=== PATIENT | male | born 1940 | race Caucasian/White ===

== ENCOUNTER → 2017-02-21 | Day surgery (SDC) | payer MEDICARE, BC | END | disposition home or self-care (01) | LOC: HOP 11:55 | PROVIDERS: ATTEND Internal Medicine | DX: Z41.8 Encounter for other procedures for purposes other than remedying health state (principal) ==

== ENCOUNTER 2017-05-07 10:58 | Day surgery (SDC) | payer MEDICARE, BC ==
[2017-05-07 12:00] LABS: BASO % 0.3 % (0-6); EOS % 2.6 % (0-6); GRAN % 65.7 % (47-80); HEMOGLOBIN 17.2 gm/dl (14.0-18.0); LYMPH % 23.1 % (16-45); MEAN CELL VOLUME 93.1 fl (81-97); MEAN CORPUSCULAR HGB CONC 34.4 g/dl (32-36); MEAN PLATELET VOLUME 10.5 fl (7.4-10.4); MONO % 8.3 % (0-9); PLATELET COUNT 215 K/uL (130-400); RED BLOOD COUNT 5.37 M/uL (4.40-5.70); RED CELL DISTRIBUTION WIDTH 13.4 % (11.5-14.5)
[2017-05-07 12:14] LABS: ALB/GLOB RATIO 1.6 (1.1-1.8); ALBUMIN 4.1 gm/dL (3.5-5.0); ALKALINE PHOSPHATASE 60 U/L (38-126); ALT/SGPT 43 U/L (21-72); ANION GAP 10.2 (7-16); AST/SGOT 28 U/L (17-59); BILIRUBIN,TOTAL 2.52 mg/dL (0.2-1.3); BLOOD UREA NITROGEN 20 mg/dL (9-20); CARBON DIOXIDE 25.8 mmol/L (22-30); EST GLOMERULAR FILTRATION RATE > 60 ml/min; GLUCOSE,RANDOM 180 mg/dL (70-110); TOTAL PROTEIN 6.7 gm/dL (6.3-8.2)
[2017-05-07 12:22] LABS: INR 2.54; PROTHROMBIN TIME (PATIENT) 27.7 SECONDS (9.5-12.1)
[2017-05-07] MEDS ORDERED: PROPOFOL 10 MG/ML VIAL IV ONE (14:00)
[2017-05-07] MEDS ORDERED: MIDAZOLAM HCL 2MG/2ML VIAL IV ONE (14:00)
[2017-05-07] MEDS ORDERED: LIDOCAINE 2% MDV (20MG/ML) 20ML VIAL IV ONE (14:00)
--- NOTE | 2017-05-07 20:08 | Operative Note ---
DATE OF PROCEDURE: 05/07/17 GARMENT CUTTER: KASSANDRA IRIZARRY M.D. HISTORY: Mr. Bustos is 77 years old, undergoing elective cardioversion for newly diagnosed atrial fibrillation. Mr. Bustos has been on Warfarin for the past several weeks plus Amiodarone was initiated. PROCEDURE: Mr. Bustos, after informed consent, was brought to [facility]. He was given sedation via Propofol by Anesthesia. Defibrillator pads were placed in the anterior/posterior position. 200 joules biphasic countershock x1 was performed with successful conversion of atrial fibrillation to sinus rhythm. FINAL IMPRESSION: 1. SUCCESSFUL CARDIOVERSION OF A-FIB TO SINUS RHYTHM. 2. CONTINUE CURRENT MEDICAL REGIMEN WRITTEN. 3. FOLLOW-UP WITH DR. IRIZARRY IN SCHEDULED. JOB: [id number] [facility]
== END 2017-05-07 13:25 | disposition home or self-care (01) ==
LOC: SUR 10:58
PROVIDERS: ATTEND Internal Medicine Cardiovascular Disease
DX: I48.0 Paroxysmal atrial fibrillation (principal); I10 Essential (primary) hypertension; Z79.01 Long term (current) use of anticoagulants; E78.00 Pure hypercholesterolemia, unspecified; E11.51 Type 2 diabetes mellitus with diabetic peripheral angiopathy without gangrene; Z79.84 Long term (current) use of oral hypoglycemic drugs
CPT/HCPCS: 80053; 85025; 85610; 93005

== ENCOUNTER 2017-07-09 11:33 | Day surgery (SDC) | payer MEDICARE, BC ==
[2017-07-09 12:35] LABS: BASO % 0.6 % (0-6); EOS % 2.5 % (0-6); GRAN % 67.3 % (47-80); HEMATOCRIT 48.2 % (42.0-52.0); LYMPH % 21.9 % (16-45); MEAN CELL VOLUME 95.4 fl (81-97); MEAN CORPUSCULAR HEMOGLOBIN 31.7 pg (27-33); MEAN CORPUSCULAR HGB CONC 33.2 g/dl (32-36); MEAN PLATELET VOLUME 10.3 fl (7.4-10.4); MONO % 7.7 % (0-9); PLATELET COUNT 238 K/uL (130-400); RED BLOOD COUNT 5.05 M/uL (4.40-5.70); WHITE BLOOD COUNT W/O DIFF 6.5 K/uL (4.2-12.2)
[2017-07-09 13:02] LABS: ALB/GLOB RATIO 1.5 (1.1-1.8); ALBUMIN 3.9 g/dL (4.0-5.0); ALKALINE PHOSPHATASE 54 U/L (40-129); ALT/SGPT 17 U/L (<41); AST/SGOT 18 U/L (10.0-50.0); BLOOD UREA NITROGEN 21 mg/dL (8-23); CREATININE 1.1 mg/dL (0.7-1.2); EST GLOMERULAR FILTRATION RATE > 60 mL/min; GLUCOSE,RANDOM 157 mg/dL (74-109); TOTAL PROTEIN 6.5 g/dL (6.6-8.7)
[2017-07-09 13:16] LABS: INR 6.69; PROTHROMBIN TIME (PATIENT) 73.6 SECONDS (9.5-12.1)
--- NOTE | 2017-07-09 16:20 | Operative Note ---
DATE OF PROCEDURE: 07/09/17 CRANE RIGGER: KASSANDRA IRIZARRY M.D. HISTORY: Mr. Bustos is 77 years old, undergoing elective cardioversion for newly diagnosed atrial fibrillation with rapid rates. He was recently successfully cardioverted but presented back into atrial fibrillation. PROCEDURE: Amiodarone was increased from loading dose. Mr. Bustos underwent 200 joules biphasic countershock after Anesthesia sedated him. He had successful conversion of atrial fibrillation to sinus rhythm. He was then doing well and was discharged in stable condition. FINAL IMPRESSION: 1. SUCCESSFUL CARDIOVERSION OF ATRIAL FIBRILLATION TO SINUS RHYTHM WITH 200 JOULES BIPHASIC COUNTERSHOCK X1. 2. CONTINUATION OF AMIODARONE 200 MG B.I.D UNTIL SEEN IN THE OFFICE IN ONE TO TWO WEEKS. JOB: [id number] MTDD
[2017-07-09] MEDS ORDERED: LIDOCAINE 2% MDV (20MG/ML) 20ML VIAL IV ONE (16:27)
[2017-07-09] MEDS ORDERED: PROPOFOL 10 MG/ML VIAL IV ONE (16:27)
== END 2017-07-09 14:40 | disposition home or self-care (01) ==
LOC: SUR 11:33
PROVIDERS: ATTEND Internal Medicine Cardiovascular Disease
DX: I48.0 Paroxysmal atrial fibrillation (principal); I10 Essential (primary) hypertension; E11.21 Type 2 diabetes mellitus with diabetic nephropathy; Z79.84 Long term (current) use of oral hypoglycemic drugs; E78.00 Pure hypercholesterolemia, unspecified; Z72.0 Tobacco use
CPT/HCPCS: 80053; 85025; 85610; 85730; 93005

== ENCOUNTER 2018-05-02 08:41 | Emergency (ER) | payer MEDICARE, BC ==
[2018-05-02] MEDS ORDERED: ASPIRIN 81 MG CHEWABLE TABLET PO ONE (09:04)
--- NOTE | 2018-05-02 09:09 | Emergency Department Record ---
History of Present Illness - General Chief Complaint: Difficulty Breathing Stated Complaint: RENE Time Seen by Provider: 05/02/18 08:58 Source: Patient, RN notes reviewed Mode of Arrival: Ambulatory - History of Present Illness Initial Comments: patient states sob for 2 days and no chest pain and he is coumadin for atrial fib and his rhytm was shock into NSR about one year ago by Dr. Escobedo. [facility] Diabetes mellitus Onset/Timin -: Days(s) Severity: Moderate Severity scale (1-10): 2 Quality: Dull Consistency: Constant, Intermittent - Related Data Home Medications Medication Instructions Recorded Confirmed Last Taken Amiodarone HCl [Pacerone] 200 mg PO DAILY 05/02/18 05/02/18 1 Day Ago ~05/01/18 Aspirin [Ecotrin] 81 mg PO DAILY 05/02/18 05/02/18 1 Day Ago ~05/01/18 Hydrochlorothiazide [Hctz] 25 mg PO DAILY 05/02/18 05/02/18 1 Day Ago ~05/01/18 Lisinopril [Zestril] 5 mg PO DAILY 05/02/18 05/02/18 1 Day Ago ~05/01/18 Metformin HCl 500 mg PO BID 05/02/18 05/02/18 1 Day Ago ~05/01/18 Metoprolol Succinate [Toprol Xl] 50 mg PO DAILY 05/02/18 05/02/18 1 Day Ago ~05/01/18 Multivit-Min/FA/Lycopen/Lutein 1 each PO DAILY 05/02/18 05/02/18 1 Day Ago [Centrum Silver Tablet] ~05/01/18 Potassium Chloride [Klor-Con 10] 10 meq PO DAILY 05/02/18 05/02/18 1 Day Ago ~05/01/18 Simvastatin 40 mg PO DAILY 05/02/18 05/02/18 1 Day Ago ~05/01/18 Umeclidinium Brm/Vilanterol Tr 1 each IH DAILY 05/02/18 05/02/18 1 Day Ago [Anoro Ellipta 62.5-25 Mcg INH] ~05/01/18 Warfarin Sodium 2.5 mg PO DAILY 05/02/18 05/02/18 1 Day Ago ~05/01/18 Allergies Allergy/AdvReac Type Severity Reaction Status Date / Time No Known Drug Allergies Allergy Verified 05/02/18 08:54 Travel Screening - Travel/Exposure Within Last 30 Days Have you traveled within the last 30 days?: No - Travel/Exposure Within Last Year Have you traveled outside the [place] in the last year?: No - Additonal Travel Details Have you been exposed to anyone with a communicable illness?: No - Travel Symptoms Symptom Screening: None Review of Systems Reviewed: No additional complaints except as noted below Constitutional: Reports: As per HPI. Denies: Chills, Fever, Malaise, Night sweats, Weakness, Weight change Eyes: Reports: As per HPI. Denies: Eye discharge, Eye pain, Photophobia, Vision change ENT: Reports: As per HPI. Denies: Congestion, Dental pain, Ear pain, Epistaxis , Hearing loss, Throat pain Respiratory: Reports: As per HPI, Hemoptysis. Denies: Cough, Dyspnea, Stridor, Wheezes Cardiovascular: Reports: As per HPI, Dyspnea on exertion. Denies: Arrhythmia, Chest pain, Edema, Murmurs, Orthopnea, Palpitations, Paroxysmal nocturnal dyspnea, Rheumatic Fever, Syncope Endocrine: Reports: As per HPI. Denies: Fatigue, Heat or cold intolerance, Polydipsia, Polyuria Gastrointestinal: Reports: As per HPI. Denies: Abdominal pain, Constipation, Diarrhea, Hematemesis, Hematochezia, Melena, Nausea, Vomiting Genitourinary: Reports: As per HPI. Denies: Dysuria, Frequency, Hematuria, Incontinence, Retention, Testicular pain, Testicular mass, Urgency Musculoskeletal: Reports: As per HPI. Denies: Arthralgia, Back pain, Gout, Joint swelling, Myalgia, Neck pain Skin: Reports: As per HPI. Denies: Bruising, Change in color, Change in hair/ nails, Lesions, Pruritus, Rash Neurological: Reports: As per HPI. Denies: Abnormal gait, Confusion, Headache, Numbness, Paresthesias, Seizure, Tingling, Tremors, Vertigo, Weakness Psychiatric: Reports: As per HPI. Denies: Anxiety, Auditory hallucinations, Depression, Homicidal thoughts, Suicidal thoughts, Visual hallucinations Hematological/Lymphatic: Reports: As per HPI. Denies: Anemia, Blood Clots, Easy bleeding, Easy bruising, Swollen glands Past Medical History - SOCIAL HISTORY Smoking Status: Former smoker Alcohol Use: None Drug Use: None - RESPIRATORY Hx Respiratory Disorders: Yes Hx Pneumonia: Yes (walking penumonia as a child) - CARDIOVASCULAR Hx Cardio Disorders: Yes Hx Hypertension: Yes Hx Irregular Heartbeat: Yes - NEURO Hx Neuro Disorders: Yes Hx Neuropathy: Yes (BLE) Comment:: hearing aids - GI Hx GI Disorders: Yes Hx of Polyps: Yes - Hx Genitourinary Disorders: Yes Hx Kidney Stones: Yes - ENDOCRINE Hx Endocrine Disorders: Yes - MUSCULOSKELETAL Hx Musculoskeletal Disorders: Yes Hx Arthritis: Yes - PSYCH Hx Psych Problems: No - HEMATOLOGY/ONCOLOGY Hx Hematology/Oncology Disorders: No Family Medical History Any Significant Family History?: Yes Physical Exam - General General Appearance: Alert, Oriented x3, Cooperative, Mild distress, Moderate distress - Head Head exam: Normal inspection - Eye Eye exam: Normal appearance, PERRL Pupils: Normal accommodation - ENT ENT exam: Normal exam, Mucous membranes moist, Normal external ear exam, Normal orophraynx, TM's normal bilaterally Ear exam: Normal external inspection. negative: External canal tenderness Nasal Exam: Normal inspection. negative: Discharge, Sinus tenderness Mouth exam: Normal external inspection, Tongue normal Teeth exam: Normal inspection. negative: Dental caries Throat exam: Normal inspection. negative: Tonsillar erythema, Tonsillar exudate - Neck Neck exam: Normal inspection, Full ROM. negative: Tenderness - Respiratory Respiratory exam: Normal lung sounds bilaterally. negative: Respiratory distress - Cardiovascular Cardiovascular Exam: Regular rate, Normal rhythm, Normal heart sounds - GI/Abdominal GI/Abdominal exam: Soft, Normal bowel sounds. negative: Tenderness - Rectal Rectal exam: Deferred - exam: Deferred - Extremities Extremities exam: Normal inspection, Full ROM, Normal capillary refill. negative: Tenderness - Back Back exam: Reports: Normal inspection, Full ROM. Denies: Muscle spasm, Rash noted, Tenderness - Neurological Neurological exam: Alert, Normal gait, Oriented X3, Reflexes normal - Psychiatric Psychiatric exam: Normal affect, Normal mood - Skin Skin exam: Dry, Intact, Normal color, Warm Course Vital Signs 05/02/18 08:44 Temperature 98.6 F Pulse Rate 76 Respiratory 80 H Rate Pulse Ox 80 L - Reevaluation(s) Reevaluation #1: Discussed case with Dr. Nava and will transfer to [facility] 05/02/18 10:15 Medical Decision Making - Data Complexity MDM Data: Labs Ordered and/or Reviewed, X-Ray Ordered and/or Reviewed ( bilateral infiltrates , pneumnia vs CHF) - Lab Data Result diagrams: 05/02/18 09:00 05/02/18 09:00 Disposition Clinical Impression: Hypoxia Dyspnea Qualifiers: Dyspnea type: dyspnea on exertion Qualified Code(s): R06.09 - Other forms of dyspnea Pneumonia Qualifiers: Pneumonia type: due to unspecified organism Laterality: bilateral Lung location : unspecified part of lung Qualified Code(s): J18.9 - Pneumonia, unspecified organism Disposition: Acute Care Hospital Transfer Condition: (2) Stable Forms: Patient Portal Access Time of Disposition: 10:16 Quality - Quality Measures Quality Measures: N/A - Blood Pressure Screening Does Patient Have Any of the Following: No Blood Pressure Classification: Normal BP Reading Systolic Measurement: 108 Diastolic Measurement: 70 Screening for High Blood Pressure: < Normal BP, F/U Not Required > [G8783]
[2018-05-02 09:21] LABS: BASO % 0.4 % (0-6); EOS % 2.9 % (0-6); GRAN % 75.8 % (47-80); HEMATOCRIT 48.9 % (42.0-52.0); HEMOGLOBIN 16.4 gm/dl (14.0-18.0); LYMPH % 14.2 % (16-45); MEAN CELL VOLUME 96.6 fl (81-97); MEAN CORPUSCULAR HEMOGLOBIN 32.4 pg (27-33); MEAN CORPUSCULAR HGB CONC 33.5 g/dl (32-36); MEAN PLATELET VOLUME 10.2 fl (7.4-10.4); MONO % 6.7 % (0-9); PLATELET COUNT 308 K/uL (130-400); RED BLOOD COUNT 5.06 M/uL (4.40-5.70); RED CELL DISTRIBUTION WIDTH 13.7 % (11.5-14.5); WHITE BLOOD COUNT W/O DIFF 10.5 K/uL (4.2-12.2)
[2018-05-02 09:28] LABS: BLOOD UREA NITROGEN 21 mg/dL (8-23); CREATININE 1.2 mg/dL (0.7-1.2); EST GLOMERULAR FILTRATION RATE > 60 mL/min
[2018-05-02 09:31] LABS: GLUCOSE,RANDOM 200 mg/dL (74-109)
[2018-05-02 09:36] LABS: CKMB 2.6 ng/mL (<6.73)
[2018-05-02 09:43] LABS: INR 2.8; PARTIAL THROMBOPLASTIN TIME 45.6 SECONDS (24.5-39.1); PROTHROMBIN TIME (PATIENT) 30.5 SECONDS (9.5-12.1)
[2018-05-02] MEDS ORDERED: CEFTRIAXONE SODIUM 1 GM in 0.9 % SODIUM CHLORIDE 100ML 100 ML IVPB ONE (09:49)
[2018-05-02] MEDS ORDERED: FUROSEMIDE IV 20MG/2ML VIAL IVP ONE (09:49)
--- NOTE | 2018-05-03 20:15 | RADIOLOGY REPORT ---
EXAM: CHEST 2 VIEWS HISTORY: SHORTNESS OF BREATH. TECHNIQUE: Two-view chest. COMPARISON: Chest x-ray 02/20/2018. FINDINGS: Interval development of patchy opacities throughout both lungs. Cardiac silhouette size is again mildly enlarged. There moderate elevation of the left hemidiaphragm, as on prior exam. No pneumothorax. IMPRESSION: INTERVAL DEVELOPMENT OF BILATERAL AIR SPACE DISEASE CONSIDER ATYPICAL INFECTION. J[facility]BER: [id number] [facility]
== END 2018-05-02 14:13 | disposition short-term general hospital (02) ==
LOC: ER 08:41
DX: J18.9 Pneumonia, unspecified organism (principal); I10 Essential (primary) hypertension; I48.91 Unspecified atrial fibrillation; E11.9 Type 2 diabetes mellitus without complications; Z79.84 Long term (current) use of oral hypoglycemic drugs; Z79.01 Long term (current) use of anticoagulants; Z87.891 Personal history of nicotine dependence
CPT/HCPCS: 71046; 80048; 82553; 84484; 85025; 85379; 85610; 85730; 93005; 93010; 93041; 96365; 96375; 99285; J1940